=== PATIENT | female | born 1990 | race Caucasian/White ===

== ENCOUNTER 2017-10-23 15:30 | Emergency (ER) | payer OTHER ==
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
[2017-10-23] MEDS ORDERED: LORazepam 2 MG/ML INJ ONE (15:41)
[2017-10-23] MEDS ORDERED: HALOPERIDOL LACT 5 MG/ML INJ ONE (15:41)
[2017-10-23 16:11] LABS: PLATELET COUNT 366 10^3/uL (150-400)
[2017-10-23] MEDS ORDERED: LORazepam 2 MG/ML INJ IM ONE (16:34)
[2017-10-23] MEDS ORDERED: HALOPERIDOL LACT 5 MG/ML INJ IM ONE (16:34)
--- NOTE | 2017-10-23 22:11 | ASMTLCPROG ---
Notes Note: Notes: Pt was unable to participate in the eval as she was too sedated at this time. Pt will be seen by [facility] in the morning. Date Signed: 10/23/2017 10:11 PM Electronically Signed By:Consuelo Tong
[2017-10-24 07:43] VITALS: BP 105/64
--- NOTE | 2017-10-24 08:47 | ASMTTCLDSP ---
[facility] Discharge Disposition Disposition: Answers: Transfer Disposition Notes: Notes: Transfer admission acceptance at [facility] for [facility] pt. Discharge Concerns/Recommendations: Notes: In consultation with [facility] ED provider, Benny Navarrete MD and [facility] on-call psychiatrist, Dr. Brumfield, both concurred that pt meets 27-65 criteria requiring psychiatric hospitalization as pt appears to be gravely disabled due to a mental illness condition. Was patient given the Answers: Not applicable Inpatient Behavioral Health Prohibited Belongings List while in the ED? Type of Hold: Answers: M1/72-hour Hold Hold initiated by: Answers: Other Notes: P Clinician For Transfers, Accepting [facility] Facility: For Transfers, Accepting Dr. Murphy Psychiatrist: For Transfers, Reason [facility] patient - [facility] not in network Patient is Being Transferred: Date Signed: 10/24/2017 08:47 AM Electronically Signed By:Chip Crooks
== END 2017-10-24 09:14 ==
DX: F23 Brief psychotic disorder (principal); F17.200 Nicotine dependence, unspecified, uncomplicated
CPT/HCPCS: 80305; G0480; J1630; J2060